=== PATIENT | female | born 1940 | race Caucasian/White ===

== ENCOUNTER 2017-10-29 06:00 | Inpatient (IN) ==
[2017-10-29] MEDS ORDERED: HYDROmorphone 2 MG/1 ML VIAL IV STA (07:09)
[2017-10-29] MEDS ORDERED: ONDANSETRON 4 MG/2 ML VIAL IV STA ×2 (07:09→09:22)
[2017-10-29] MEDS ORDERED: ONDANSETRON 4 MG/2 ML VIAL ONE (07:19)
[2017-10-29] MEDS ORDERED: HYDROmorphone 2 MG/1 ML VIAL ONE (07:20)
[2017-10-29 07:37] LABS: Basophils # 0.1 10*3/uL (0.0-0.2); Basophils % 0.3 % (0.0-0.8); Eosinophils % 0.1 % (0.00-10.9); Hematocrit 33.8 VOL% (35.7-47.0); Hemoglobin 11.7 GM/DL (12.0-16.0); Immature Granulocytes % 0.4 %; Immature Granulocytes Absolute 0.06 #; Lymphocytes # 1.1 10*3/uL (1.4-4.0); Mean Corpuscular HGB Conc 34.6 GM/DL (32-36); Mean Corpuscular Hemoglobin 30 PG (27-34); Mean Corpuscular Volume 86.7 FL (87-102); Monocytes # 1.4 10*3/uL (0.11-0.8); Neutrophils # 12.5 10*3/uL (1.4-7.4); Neutrophils % 83.2 % (38.7-73.9); Platelet Count 220 T/CUMM (130-400); Red Cell Distribution Width 14.1 % (9.3-17.3)
[2017-10-29 08:00] LABS: PT Patient Result 10.3 SECS; Partial Thromboplastin Time 25.2 SECS (0-40)
[2017-10-29] MEDS ORDERED: SODIUM CHLORIDE 0.9% 250 ML IV STA (08:03)
[2017-10-29 08:06] LABS: Alanine Aminotransferase 440 U/L (13-56); Albumin 2.9 G/DL (3.4-5.0); Alkaline Phosphatase 66 U/L (45-117); Aspartate Amino Transferase 277 U/L (0-37); Blood Urea Nitrogen 14 MG/DL (7-18); Calcium 8.8 MG/DL (8.5-10.1); Glucose 139 MG/DL (74-106); Osmolality,Calculated 272.1 MOS/KG (273-304); Potassium 4.1 MMOL/L (3.5-5.1); Sodium 135 MMOL/L (136-145)
[2017-10-29 09:13] LABS: Apearance,Urine CLEAR (Clear); Bilirubin,Urine Negative (Negative); Blood, Urine Negative (Negative); Glucose,Urine (UA) Negative (Negative); Ketones,Urine 5 mg/dL (Negative); Mucus,Urine Occasional /LPF (Occasional); Nitrite,Urine Negative (Negative); Protein,Urine Negative; RBC,Urine 1 /HPF (0-4); Urine Color Yellow (Yellow); Urine Specific Gravity 1.015 (1.001-1.035); WBC,Urine 1 /HPF (0-6)
[2017-10-29] MEDS ORDERED: MORPHINE 2 MG/1 ML SYRINGE IV STA (09:22)
[2017-10-29] MEDS ORDERED: cefTRIAXone 1,000 MG in SODIUM CHLORIDE 0.9% 100 ML IV STA (09:47)
[2017-10-29] MEDS ORDERED: cefTRIAXone 1,000 MG VIAL ONE (09:59)
[2017-10-29] MEDS ORDERED: ACETAMINOPHEN 325 MG TABLET PO PRN (11:25)
[2017-10-29] MEDS ORDERED: DOCUSATE SODIUM 100 MG CAPSULE PO PRN (11:25)
[2017-10-29] MEDS ORDERED: SODIUM CHLORIDE 0.9% 1,000 ML IV SCH (11:30)
[2017-10-29] MEDS ORDERED: PROMETHAZINE 25 MG/1 ML VIAL IM PRN (11:55)
[2017-10-29] MEDS: PANTOPRAZOLE 40 MG TABLET PO SCH (11:58)
[2017-10-29] MEDS: ONDANSETRON 4 MG/2 ML VIAL IV PRN ×2 (11:59→18:05)
[2017-10-29] MEDS ORDERED: HYDROmorphone 2 MG/1 ML VIAL IV PRN (13:09)
[2017-10-29] MEDS ORDERED: ENOXAPARIN 40 MG/0.4 ML SYRINGE SUBCUT SCH (13:30)
[2017-10-29] MEDS: ALISKIREN PO SCH (21:13)
[2017-10-29] MEDS: HYDROCHLOROTHIAZIDE PO SCH (21:13)
[2017-10-30] MEDS ORDERED: DILTIAZEM 50 MG/10 ML VIAL IV ONE (04:01)
[2017-10-30] MEDS ORDERED: DILTIAZEM 100 MG VIAL.ADD IV ONE (04:24)
[2017-10-30] MEDS ORDERED: ASPIRIN 325 MG TABLET PO SCH (04:30)
[2017-10-30] MEDS ORDERED: DILTIAZEM INJ 100 MG in SODIUM CHLORIDE 0.9% 100 ML IV SCH (04:30)
[2017-10-30] MEDS ORDERED: CLOPIDOGREL 75 MG TABLET PO SCH (04:30)
[2017-10-30] MEDS: ENOXAPARIN 80 MG/0.8 ML SYRINGE SUBCUT SCH ×2 (04:52→19:51)
[2017-10-30 06:10] LABS: Basophils # 0.1 10*3/uL (0.0-0.2); Basophils % 0.4 % (0.0-0.8); Eosinophils # 0.2 10*3/uL (0.0-0.87); Eosinophils % 1.6 % (0.00-10.9); Hematocrit 30.6 VOL% (35.7-47.0); Hemoglobin 10.3 GM/DL (12.0-16.0); Immature Granulocytes % 0.5 %; Immature Granulocytes Absolute 0.06 #; Lymphocytes # 2.5 10*3/uL (1.4-4.0); Lymphocytes % 21.7 % (21.3-54.2); Mean Corpuscular HGB Conc 33.7 GM/DL (32-36); Mean Corpuscular Hemoglobin 29 PG (27-34); Mean Corpuscular Volume 87.4 FL (87-102); Mean Platelet Volume 11.1 FL (9.6-12.0); Monocytes # 1.7 10*3/uL (0.11-0.8); Monocytes % 14.7 % (1.7-12.7); Neutrophils # 7.2 10*3/uL (1.4-7.4); Neutrophils % 61.1 % (38.7-73.9); Platelet Count 210 T/CUMM (130-400); Red Cell Distribution Width 14.3 % (9.3-17.3); White Blood Count 11.7 T/CUMM (4-12)
[2017-10-30 06:51] LABS: Osmolality,Calculated 275.7 MOS/KG (273-304); Potassium 3.6 MMOL/L (3.5-5.1)
[2017-10-30 06:57] LABS: Troponin I Only 0.06 NG/ML (0.00-0.045)
[2017-10-30 09:11] LABS: Free T4 (Free Thyroxine) 1.32 NG/DL (0.76-1.46); Thyroid Stimulating Hormone 0.8 uIU/ml (0.358-3.74)
[2017-10-30] MEDS: CARVEDILOL 12.5 MG TABLET PO SCH ×2 (10:28→20:52)
[2017-10-30] MEDS: cefTRIAXone 1,000 MG in SYRINGE 1 EACH IV SCH (10:29)
[2017-10-30] MEDS: PANTOPRAZOLE 40 MG TABLET PO SCH (10:29)
[2017-10-30] MEDS: ASPIRIN EC 81 MG TABLET PO SCH (10:29)
[2017-10-30] MEDS: ALISKIREN PO SCH (20:51)
[2017-10-30] MEDS: HYDROCHLOROTHIAZIDE PO SCH (20:51)
[2017-10-31 04:44] LABS: Basophils # 0.1 10*3/uL (0.0-0.2); Basophils % 0.6 % (0.0-0.8); Eosinophils # 0.8 10*3/uL (0.0-0.87); Eosinophils % 8.9 % (0.00-10.9); Hematocrit 28.6 VOL% (35.7-47.0); Hemoglobin 9.7 GM/DL (12.0-16.0); Immature Granulocytes % 0.3 %; Immature Granulocytes Absolute 0.03 #; Lymphocytes # 2.6 10*3/uL (1.4-4.0); Lymphocytes % 29.3 % (21.3-54.2); Mean Corpuscular HGB Conc 33.9 GM/DL (32-36); Mean Corpuscular Hemoglobin 30 PG (27-34); Mean Corpuscular Volume 87.5 FL (87-102); Mean Platelet Volume 10.6 FL (9.6-12.0); Monocytes # 1.2 10*3/uL (0.11-0.8); Monocytes % 13.7 % (1.7-12.7); Neutrophils # 4.2 10*3/uL (1.4-7.4); Neutrophils % 47.2 % (38.7-73.9); Platelet Count 210 T/CUMM (130-400); Red Blood Count 3.27 MC/CUMM (3.8-5.5); Red Cell Distribution Width 13.9 % (9.3-17.3); White Blood Count 8.8 T/CUMM (4-12)
[2017-10-31 05:15] LABS: Magnesium 1.9 MG/DL (1.8-2.4); Osmolality,Calculated 276.7 MOS/KG (273-304); Potassium 3.9 MMOL/L (3.5-5.1)
[2017-10-31 05:18] LABS: Risk Ratio 4.5; VLDL CHOLESTEROL 24.4 MG/DL
[2017-10-31 05:21] LABS: Albumin 2.3 G/DL (3.4-5.0); Bilirubin,Direct 0.13 MG/DL (0.0-0.20); Bilirubin,Indirect 0.4 MG/DL (0.0-1.0); Bilirubin,Total 0.5 MG/DL (0.2-1.0); Total Protein 5.4 G/DL (6.4-8.3)
[2017-10-31] MEDS: ENOXAPARIN 80 MG/0.8 ML SYRINGE SUBCUT SCH (05:32)
[2017-10-31] MEDS: CARVEDILOL 12.5 MG TABLET PO SCH (08:59)
[2017-10-31] MEDS: ASPIRIN EC 81 MG TABLET PO SCH (08:59)
[2017-10-31] MEDS: cefTRIAXone 1,000 MG in SYRINGE 1 EACH IV SCH (08:59)
[2017-10-31] MEDS: PANTOPRAZOLE 40 MG TABLET PO SCH (08:59)
[2017-10-31 12:10] VITALS: BP 136/66
[2017-10-31] MEDS ORDERED: APIXABAN 5 MG TABLET PO SCH (21:00)
== END 2017-10-31 14:08 | disposition home or self-care (01) | DRG 206 ==
LOC: EDUNIT# → EDBD → N.ED 06:00 → N.EDINP 10:00 → N.TELES 11:23
PROVIDERS: ADMIT Internal Medicine; ATTEND Internal Medicine